=== PATIENT | female | born 1985 | race Caucasian/White ===

== ENCOUNTER 2017-04-15 10:37 | Emergency (ER) | payer OTHER ==
[~2017-04-15] VITALS: Ht 152.4 cm; Wt 72.6 kg
[2017-04-15 10:37] VITALS: BP 142/92
[2017-04-15] MEDS ORDERED: NAPROSYN500 MG PO (11:09)
[2017-04-15] MEDS ORDERED: HYDROCODONE-AP1 EAC6 PO (11:09)
== END 2017-04-15 11:21 | disposition home or self-care (01) ==
LOC: ER 10:37
DX: K01.1 Impacted teeth (principal); K08.89 Other specified disorders of teeth and supporting structures